=== PATIENT | female | born 1935 | race Caucasian/White ===

== ENCOUNTER → 2017-05-04 | Outpatient (CLI) | payer MEDICARE, OTHER ==
[2017-05-04 09:58] LABS: ABSOLUTE BASOPHILS # (AUTO) 0.1 10^3/uL (0.0-0.2); ABSOLUTE EOSINOPHILS # (AUTO) 0.2 10^3/uL (0.0-0.6); ABSOLUTE LYMPHOCYTES (AUTO) 3.2 10^3/uL (0.5-4.7); ABSOLUTE MONOCYTES (AUTO) 0.5 10^3/uL (0.1-1.4); ABSOLUTE NEUT (AUTO) 3.5 10^3/uL (1.7-8.2); EOSINOPHILS % (AUTO) 2.2 % (0-6); HEMOGLOBIN 12.2 g/dL (12.0-15.5); HGB HCT DIFFERENCE -0.4; LYMPHOCYTES % (AUTO) 43.1 % (13-45); MEAN CORPUSCULAR HEMOGLOBIN 30.2 pg (27.0-33.4); MEAN CORPUSCULAR HGB CONC 32.9 g/dL (32.0-36.0); MEAN CORPUSCULAR VOLUME 92 fl (80-97); MONOCYTES % (AUTO) 6.5 % (3-13); RED BLOOD COUNT 4.02 10^6/uL (3.72-5.28); RED CELL DISTRIBUTION WIDTH 13.8 % (11.5-14.0); SEGMENTED NEUTROPHILS % (AUTO) 47.2 % (42-78); WHITE BLOOD COUNT 7.3 10^3/uL (4.0-10.5)
[2017-05-04 10:22] LABS: ALANINE AMINOTRANSFERASE 24 U/L (9-52); ALBUMIN 3.9 g/dL (3.5-5.0); ALKALINE PHOSPHATASE 32 U/L (38-126); ANION GAP 11 (5-19); ASPARTATE AMINO TRANSFERASE 21 U/L (14-36); BILIRUBIN,DIRECT 0.3 mg/dL (0.0-0.4); BILIRUBIN,TOTAL 0.6 mg/dL (0.2-1.3); BLOOD UREA NITROGEN 18 mg/dL (7-20); CALCIUM 9.6 mg/dL (8.4-10.2); CARBON DIOXIDE 27 mmol/L (22-30); CHLORIDE 103 mmol/L (98-107); CHOLESTEROL 146.66 mg/dL (0-200); CREATININE RESULT 0.69 mg/dL (0.52-1.25); Direct HDL 46 mg/dL (>40); GLUCOSE 178 mg/dL (75-110); POTASSIUM 3.6 mmol/L (3.6-5.0); SODIUM 140.8 mmol/L (137-145); TOTAL PROTEIN 6.3 g/dL (6.3-8.2); TRIGLYCERIDES 117 mg/dL (<150)
[2017-05-04 10:35] LABS: DIRECT LDL 88 mg/dL (<100)
== END ==
LOC: OD 08:50
PROVIDERS: ATTEND Internal Medicine
DX: E11.9 Type 2 diabetes mellitus without complications (principal); I10 Essential (primary) hypertension; E78.5 Hyperlipidemia, unspecified
CPT/HCPCS: 36415; 80053; 80061; 82043; 83036; 84443; 85025

== ENCOUNTER 2018-04-06 20:03 | Inpatient (IN) | payer MEDICARE, OTHER ==
[2018-04-06] MEDS ORDERED: RINGERS SOLUTION,LACTATED 1,000 ML IV ONE ×2 (20:10→21:35)
[2018-04-06] MEDS ORDERED: CEFEPIME 2 GM/D5W RTU 2 GM/50 ML RTUPB IV ONE (20:11)
--- NOTE | 2018-04-06 20:32 | ER Document Report ---
ED General - General Stated Complaint: FEVER Time Seen by Provider: 04/06/18 20:10 Cannot obtain history due to: Altered mental status Notes: Patient is an 82-year-old female with a past medical history of hypertension who presents with confusion and fever. The patient is unable to provide any meaningful history at time of arrival stating she is uncertain of why she is here that she overall feels "fine". Per EMS report, family contacted their services due to concerns the patient was acting confused and disoriented. No family is present at time of initial assessment to corroborate history. TRAVEL OUTSIDE OF THE [place] IN LAST 30 DAYS: No - Related Data Allergies/Adverse Reactions: No Known Allergies Allergy (Verified 05/10/13 08:31) Past Medical History - General Information source: Patient, Emergency Med Personnel Cannot obtain history due to: Altered mental status - Social History Smoking Status: Never Smoker Frequency of alcohol use: None Drug Abuse: None Lives with: Family Family History: Reviewed & Not Pertinent - Past Medical History Cardiac Medical History: Reports: Hx Hypercholesterolemia, Hx Hypertension - lisinopril metoprolol hctz lipitor Denies: Hx Congestive Heart Failure, Hx Heart Attack, Hx Heart Murmur Pulmonary Medical History: Denies: Hx Asthma, Hx Bronchitis, Hx COPD, Hx Pneumonia, Hx Tuberculosis Neurological Medical History: Denies: Hx Cerebrovascular Accident, Hx Seizures GI Medical History: Denies: Hx Hepatitis, Hx Hiatal Hernia, Hx Ulcer Musculoskeltal Medical History: Infectious Medical History: Denies: Hx Hepatitis Past Surgical History: Reports: Hx Appendectomy, Hx Cholecystectomy, Hx Hysterectomy, Hx Mastectomy - TROY, NO NEED TO AVOID EITHER ARM. Denies: Hx Open Heart Surgery, Hx Pacemaker - Immunizations Hx Diphtheria, Pertussis, Tetanus Vaccination: Yes Review of Systems - Review of Systems Notes: Constitutional: Positive for fever. HENT: Negative for sore throat. Eyes: Negative for visual changes. Cardiovascular: Negative for chest pain. Respiratory: Negative for shortness of breath. Gastrointestinal: Negative for abdominal pain, vomiting or diarrhea. Genitourinary: Negative for dysuria. Musculoskeletal: Negative for back pain. Skin: Negative for rash. Neurological: Negative for headaches, weakness or numbness. 10 point ROS negative except as marked above and in HPI. Physical Exam - Vital signs Vitals: Temp Pulse Resp BP Pulse Ox 100.0 F 113 H 17 224/109 H 96 04/06/18 20:19 04/06/18 20:19 04/06/18 20:19 04/06/18 20:19 04/06/18 20:19 Interpretation: Hypertensive, Tachycardic, Febrile Notes: PHYSICAL EXAMINATION: GENERAL: Well-appearing, well-nourished and in no acute distress. HEAD: Atraumatic, normocephalic. EYES: Pupils equal round and reactive to light, extraocular movements intact, sclera anicteric, conjunctiva are normal. ENT: nares patent, oropharynx clear without exudates. Moderately dry mucous membranes. NECK: Normal range of motion, supple without lymphadenopathy LUNGS: Breath sounds clear to auscultation bilaterally and equal. No wheezes rales or rhonchi. HEART: Regular tachycardia without murmurs ABDOMEN: Soft, nontender, normoactive bowel sounds. No guarding, no rebound. No masses appreciated. EXTREMITIES: Normal range of motion, no pitting or edema. No cyanosis. NEUROLOGICAL: No focal neurological deficits. Moves all extremities spontaneously and on command. PSYCH: Alert, oriented to person only but does not know the year, current president, or why she is here in the emergency department. SKIN: Warm, Dry, normal turgor, no rashes or lesions noted. Course - Re-evaluation Re-evalutation: 04/06/18 20:28 Patient presents confused, oriented to person but not year, location or why she is here. She is overall nontoxic in appearance, smiling and appropriately interactive with me although on presentation her vitals are abnormal with tachycardia, fever and marked hypertension. The patient does have a long- standing history of severe hypertension and is uncertain whether or not she has taken any of her 3 normal antihypertensives. Patient denies any complaints to me, states she does not know why she is here and otherwise feels okay. However patient does meet Sirs criteria at time of arrival we will therefore initiate a septic workup and begin IV fluids as well as cefepime IV. Will reassess at regular intervals. 04/06/18 21:35 Patient continues to be nontoxic in appearance, vitals show mild ongoing tachycardia but otherwise unremarkable. Patient's lactate is elevated at 3.8. Awaiting urinalysis although chest x-ray is clear. CBC does show mild leukocytosis. A second liter of IV fluids has been ordered. 04/06/18 22:25 Patient continues to be confused but otherwise nontoxic in appearance. Labs have all returned and do not show any obvious source of infection. Broad- spectrum coverage with vancomycin and cefepime is ongoing. I discussed this case with Dr. Ayala who is excepted the patient for Sirs with fever of unknown origin. I have confirmed with the daughter at the bedside that the patient is not normally disoriented to this degree which is consistent with a diagnosis of delirium in the setting of a fever of unknown origin. Family also confirms that the patient has not taken her blood pressure medications today likely accounting for her hypertensive urgency. - Vital Signs Vital signs: Temp Pulse Resp BP Pulse Ox 98.7 F 79 19 175/74 H 94 04/07/18 01:33 04/07/18 02:57 04/07/18 02:00 04/07/18 02:57 04/07/18 02:57 - Laboratory Result Diagrams: 04/06/18 19:33 04/06/18 19:33 Laboratory results interpreted by me: 04/06/18 04/06/18 04/06/18 19:33 19:33 20:38 WBC 12.1 H Seg Neutrophils % 86.1 H Lymphocytes % 11.3 L Monocytes % 1.9 L Absolute Neutrophils 10.4 H VBG pH Glucose 214 H Lactic Acid 3.8 H Urine Protein Urine Glucose (UA) Urine Ascorbic Acid 04/06/18 04/06/18 20:38 21:23 WBC Seg Neutrophils % Lymphocytes % Monocytes % Absolute Neutrophils VBG pH 7.43 H Glucose Lactic Acid Urine Protein 100 H Urine Glucose (UA) >=500 H Urine Ascorbic Acid 20 H - Diagnostic Test Radiology reviewed: Image reviewed, Reports reviewed Radiology results interpreted by me: 04/06/18 22:26 Chest x-ray: No acute infiltrate or pneumothorax Discharge - Discharge Clinical Impression: Fever of unknown origin, SIRS (systemic inflammatory response syndrome), Hypertensive urgency Condition: Fair Disposition: ADMITTED INPATIENT Admitting Provider: Hospitalist Unit Admitted: [facility]
[2018-04-06 20:38] LABS: ABSOLUTE BASOPHILS # (AUTO) 0.1 10^3/uL (0.0-0.2); ABSOLUTE LYMPHOCYTES (AUTO) 1.4 10^3/uL (0.5-4.7); ABSOLUTE MONOCYTES (AUTO) 0.2 10^3/uL (0.1-1.4); ABSOLUTE NEUT (AUTO) 10.4 10^3/uL (1.7-8.2); BASOPHILS % (AUTO) 0.7 % (0-2); HEMOGLOBIN 14.1 g/dL (12.0-15.5); LYMPHOCYTES % (AUTO) 11.3 % (13-45); MEAN CORPUSCULAR HEMOGLOBIN 30.8 pg (27.0-33.4); MEAN CORPUSCULAR HGB CONC 33.5 g/dL (32.0-36.0); MEAN CORPUSCULAR VOLUME 92 fl (80-97); MONOCYTES % (AUTO) 1.9 % (3-13); PLATELET COUNT 249 10^3/uL (150-450); RED BLOOD COUNT 4.56 10^6/uL (3.72-5.28); RED CELL DISTRIBUTION WIDTH 13.7 % (11.5-14.0); SEGMENTED NEUTROPHILS % (AUTO) 86.1 % (42-78); TOTAL CELLS COUNTED % (AUTO) 100 %; WHITE BLOOD COUNT 12.1 10^3/uL (4.0-10.5)
--- NOTE | 2018-04-06 20:38 | RADIOLOGY REPORT (SQ) ---
EXAM DESCRIPTION: CHEST SINGLE VIEW COMPLETED DATE/TIME: 04/06/2018 8:24 pm REASON FOR STUDY: fever, cough COMPARISON: CT from 05/03/2010 EXAM PARAMETERS: NUMBER OF VIEWS: One view. TECHNIQUE: Single frontal radiographic view of the chest acquired. RADIATION DOSE: NA LIMITATIONS: None. FINDINGS: LUNGS AND PLEURA: No opacities, masses or pneumothorax. No pleural effusion. MEDIASTINUM AND HILAR STRUCTURES: No masses. Contour normal. HEART AND VASCULAR STRUCTURES: Heart normal in size. Normal vasculature. BONES: No acute findings. HARDWARE: Stable. OTHER: No other significant finding. IMPRESSION: NO ACUTE RADIOGRAPHIC FINDING IN THE CHEST. TECHNICAL DOCUMENTATION: JOB ID: [id number] [employer]- All Rights Reserved Reading location - IP/workstation name: [email or web address]
[2018-04-06 20:58] LABS: ALANINE AMINOTRANSFERASE 23 U/L (9-52); ALBUMIN 4.1 g/dL (3.5-5.0); ALKALINE PHOSPHATASE 46 U/L (38-126); ANION GAP 15 (5-19); ASPARTATE AMINO TRANSFERASE 20 U/L (14-36); BILIRUBIN,DIRECT 0.3 mg/dL (0.0-0.4); BILIRUBIN,TOTAL 0.6 mg/dL (0.2-1.3); BLOOD UREA NITROGEN 11 mg/dL (7-20); CALCIUM 9.1 mg/dL (8.4-10.2); CARBON DIOXIDE 26 mmol/L (22-30); CHLORIDE 100 mmol/L (98-107); GLUCOSE 214 mg/dL (75-110); POTASSIUM 4.3 mmol/L (3.6-5.0); SODIUM 140.5 mmol/L (137-145); TOTAL PROTEIN 6.3 g/dL (6.3-8.2)
[2018-04-06 21:00] LABS: VENOUS BLOOD BASE EXCESS 1.4 mmol/L; VENOUS BLOOD HCO3 25.7 mmol/L (20-32); VENOUS BLOOD PCO2 39.8 mmHg (35-63); VENOUS BLOOD PH 7.43 (7.30-7.42)
[2018-04-06] MEDS ORDERED: VANCOMYCIN HCL INJ 1000 MG VIAL IV ONE (21:36)
[2018-04-06] MEDS ORDERED: ACETAMINOPHEN 325 MG TABLET PO ONE (21:37)
[2018-04-06 21:51] LABS: APPEARANCE,URINE CLEAR; BILIRUBIN,URINE NEGATIVE (NEGATIVE); COLOR,URINE YELLOW; GLUCOSE, URINE >=500 mg/dL (NEGATIVE); KETONES,URINE NEGATIVE (NEGATIVE); LEUKOCYTE ESTERASE,URINE NEGATIVE (NEGATIVE); NITRITE,URINE NEGATIVE (NEGATIVE); PROTEIN,URINE 100 mg/dL (NEGATIVE); URINE SPECIFIC GRAVITY 1.014; UROBILINOGEN,URINE NEGATIVE mg/dL (<2.0)
[2018-04-06] MEDS ORDERED: IPRATROPIUM/ALBUTEROL 0.5-2.5 MG/3 ML AMPUL NEB PRN (22:15)
[2018-04-06] MEDS ORDERED: MAGNESIUM HYDROXIDE SUSP 30 ML UDCUP PO PRN (22:15)
[2018-04-06] MEDS ORDERED: METOPROLOL TARTRATE 100 MG TABLET PO ONE (22:30)
[2018-04-06] MEDS ORDERED: ASPIRIN 81 MG TABLET, ENT COATED PO ONE (23:00)
[2018-04-06] MEDS ORDERED: ASPIRIN 81 MG TABLET, ENT COATED PO SCH (23:00)
[2018-04-06 23:12] LABS: URINE AMPHETAMINES SCREEN NEGATIVE; URINE BARBITURATES SCREEN NEGATIVE; URINE BENZODIAZEPINES SCREEN NEGATIVE; URINE COCAINE SCREEN NEGATIVE; URINE MARIJUANA (THC) SCREEN NEGATIVE; URINE METHADONE SCREEN NEGATIVE; URINE PHENCYCLIDINE SCREEN NEGATIVE
[2018-04-07] MEDS: HYDRALAZINE HCL INJ/PF 20 MG/1 ML SDV IV PRN ×2 (01:37→12:37)
--- NOTE | 2018-04-07 04:04 | PDOC H&P ---
History of Present Illness Admission Date/PCP: 04/06/18 22:36 ANJUM CORTEZMALENAMARIA FERNANDA, Patient complains of: Altered mental status History of Present Illness: JOSEPH NICOLE is a 82 year old female with history of hypertension who presents with altered mental status and fever. Patient brought to the emergency room after noted by family member to be disoriented with fever of 100.2. In the emergency room she is found to have a blood pressure of 224/109 Patient is a poor historian however completely denies pain or complaints and states she feels well. Specifically denying photophobia, stiff neck or headache. She denies any missed medications or new medications nor exceptional stressors. Biochemical, biophysical and imaging workup is nonspecific. She started on empiric antibiotics and referred to the hospitalist for admission. Past Medical History Cardiac Medical History: Reports: Hyperlipidema, Hypertension - lisinopril metoprolol hctz lipitor Denies: Congestive Heart Failure, Myocardial Infarction, Heart Murmur Pulmonary Medical History: Denies: Asthma, Bronchitis, Chronic Obstructive Pulmonary Disease (COPD), Pneumonia, Tuberculosis Neurological Medical History: Denies: Seizures GI Medical History: Denies: Hepatitis, Hiatal Hernia Musculoskeltal Medical History: Hematology: Denies: Anemia, Hemophilia, Sickle Cell Disease Past Surgical History Past Surgical History: Reports: Appendectomy, Cholecystectomy, Hysterectomy, Mastectomy - TROY, NO NEED TO AVOID EITHER ARM Denies: Amputation, Pacemaker Social History Information Source: Patient, [facility] Records Lives with: Family Smoking Status: Never Smoker Frequency of Alcohol Use: None Hx Recreational Drug Use: No Drugs: None - Advance Directive Resuscitation Status: Full Code Family History Family History: Other - Unobtainable Parental Family History Reviewed: Yes - Unobtainable Children Family History Reviewed: Yes - Unobtainable Sibling(s) Family History Reviewed.: Yes - Unobtainable Medication/Allergy Home Medications: Anastrozole [Arimidex 1 mg Tablet] 1 mg PO DAILY 04/30/13 Antiox #11/Om3/Dha/Epa/Lut/Stephon [Ocuvite Adult 50+ Softgel] 1 cap PO DAILY Aspirin [Ecotrin 81 mg EC Tablet] 81 mg PO DAILY PRN 04/30/13 Atorvastatin Calcium [Lipitor 20 Mg Tablet] 20 mg PO QHS 04/30/13 Hydrochlorothiazide [Hydrodiuril 25 mg Tablet] 25 mg PO QAM 04/30/13 Ibuprofen [Motrin 400 Mg Tablet] 400 mg PO PRN PRN 04/30/13 Lisinopril [Prinivil 10 mg Tablet] 10 mg PO DAILY 04/30/13 Dallas-3 Fatty Acids [Fish Oil] 300 mg PO DAILY 04/30/13 Dallas-3 Fatty Acids [Dallas-3] 1,000 mg PO DAILY 04/30/13 Metoprolol Tartrate [Lopressor 100 Mg Tablet] 100 mg PO 06/14/13 Allergies/Adverse Reactions: No Known Allergies Allergy (Verified 05/10/13 08:31) Review of Systems ROS unobtainable: Due to mental status Constitutional: ABSENT: chills, fever(s), headache(s), weight gain, weight loss Eyes: ABSENT: visual disturbances Ears: ABSENT: hearing changes Cardiovascular: ABSENT: chest pain, dyspnea on exertion, edema, orthropnea, palpitations Respiratory: ABSENT: cough, hemoptysis Gastrointestinal: ABSENT: abdominal pain, constipation, diarrhea, hematemesis, hematochezia, nausea, vomiting Genitourinary: ABSENT: dysuria, hematuria Musculoskeletal: ABSENT: joint swelling Integumentary: ABSENT: rash, wounds Neurological: ABSENT: abnormal gait, abnormal speech, confusion, dizziness, focal weakness, syncope Psychiatric: ABSENT: anxiety, depression, homidical ideation, suicidal ideation Endocrine: ABSENT: cold intolerance, heat intolerance, polydipsia, polyuria Hematologic/Lymphatic: ABSENT: easy bleeding, easy bruising Physical Exam Vital Signs: Temp Pulse Resp BP Pulse Ox 98.7 F 79 19 175/74 H 94 04/07/18 01:33 04/07/18 02:57 04/07/18 02:00 04/07/18 02:57 04/07/18 02:57 Intake & Output 04/05/18 04/06/18 04/07/18 11:59 11:59 11:59 Weight 73.7 kg General appearance: PRESENT: no acute distress, cooperative, hard of hearing, obese, well-developed, well-nourished. ABSENT: disheveled Head exam: PRESENT: atraumatic, normocephalic Eye exam: PRESENT: conjunctiva pink, EOMI, PERRLA. ABSENT: scleral icterus Ear exam: PRESENT: normal external ear exam Mouth exam: PRESENT: moist, tongue midline Neck exam: ABSENT: carotid bruit, JVD, lymphadenopathy, thyromegaly Respiratory exam: PRESENT: clear to auscultation troy. ABSENT: rales, rhonchi, wheezes Cardiovascular exam: PRESENT: RRR. ABSENT: diastolic murmur, rubs, systolic murmur Pulses: PRESENT: normal dorsalis pedis pul Vascular exam: PRESENT: normal capillary refill GI/Abdominal exam: PRESENT: normal bowel sounds, soft. ABSENT: distended, guarding, mass, organolmegaly, rebound, tenderness Rectal exam: PRESENT: deferred Extremities exam: PRESENT: full ROM. ABSENT: calf tenderness, clubbing, pedal edema Neurological exam: PRESENT: alert, awake, oriented to person, oriented to place , oriented to time, oriented to situation, CN II-XII grossly intact. ABSENT: motor sensory deficit Psychiatric exam: PRESENT: appropriate affect, normal mood. ABSENT: homicidal ideation, suicidal ideation Skin exam: PRESENT: dry, intact, warm. ABSENT: cyanosis, rash Results Laboratory Results: 04/07/18 00:41 Lactic Acid 3.1 H 04/06/18 22:40 Troponin I 0.027 Impressions: Chest X-Ray 04/06/18 20:10 IMPRESSION: NO ACUTE RADIOGRAPHIC FINDING IN THE CHEST. Assessment & Plan - Diagnosis (1) Hypertensive urgency Is this a current diagnosis for this admission?: Yes Plan: Telemetry admission, NESS inhibitor and hydralazine ordered medication reconciliation pending (2) Encephalopathy Is this a current diagnosis for this admission?: Yes Plan: Possibly multifactorial secondary to #1 and unknown source of fever. Blood pressure reduction and supportive care follow-up a.m. labs (3) Fever of unknown origin Plan: We will withhold antibiotics pending identification of source. - Time Time Spent: 50 to 70 Minutes - Inpatient Certification Medical Necessity: Need Close Monitoring Due to Risk of Patient Decompensation
[2018-04-07 04:52] LABS: ABSOLUTE BASOPHILS # (AUTO) 0.1 10^3/uL (0.0-0.2); ABSOLUTE LYMPHOCYTES (AUTO) 3.2 10^3/uL (0.5-4.7); ABSOLUTE MONOCYTES (AUTO) 0.8 10^3/uL (0.1-1.4); ABSOLUTE NEUT (AUTO) 8.5 10^3/uL (1.7-8.2); EOSINOPHILS % (AUTO) 0.2 % (0-6); HEMOGLOBIN 12.6 g/dL (12.0-15.5); LYMPHOCYTES % (AUTO) 25.2 % (13-45); MEAN CORPUSCULAR HEMOGLOBIN 30.5 pg (27.0-33.4); MEAN CORPUSCULAR HGB CONC 33.1 g/dL (32.0-36.0); MEAN CORPUSCULAR VOLUME 92 fl (80-97); MONOCYTES % (AUTO) 6.2 % (3-13); PLATELET COUNT 214 10^3/uL (150-450); RED BLOOD COUNT 4.13 10^6/uL (3.72-5.28); RED CELL DISTRIBUTION WIDTH 13.7 % (11.5-14.0); SEGMENTED NEUTROPHILS % (AUTO) 67.4 % (42-78); TOTAL CELLS COUNTED % (AUTO) 100 %; WHITE BLOOD COUNT 12.5 10^3/uL (4.0-10.5)
[2018-04-07] MEDS ORDERED: HYDRALAZINE HCL INJ/PF 20 MG/1 ML SDV IV ONE (05:00)
[2018-04-07 05:18] LABS: ALANINE AMINOTRANSFERASE 21 U/L (9-52); ALBUMIN 3.3 g/dL (3.5-5.0); ALKALINE PHOSPHATASE 29 U/L (38-126); ANION GAP 11 (5-19); ASPARTATE AMINO TRANSFERASE 15 U/L (14-36); BILIRUBIN,DIRECT 0.1 mg/dL (0.0-0.4); BILIRUBIN,TOTAL 0.4 mg/dL (0.2-1.3); BLOOD UREA NITROGEN 9 mg/dL (7-20); CALCIUM 8.5 mg/dL (8.4-10.2); CARBON DIOXIDE 26 mmol/L (22-30); CHLORIDE 103 mmol/L (98-107); CREATINE KINASE 42 U/L (30-135); GLUCOSE 181 mg/dL (75-110); POTASSIUM 3.6 mmol/L (3.6-5.0); SODIUM 139.7 mmol/L (137-145); TOTAL PROTEIN 5.4 g/dL (6.3-8.2)
[2018-04-07 05:22] LABS: CREATINE KINASE MB 0.56 ng/mL (<4.55); TROPONIN I 0.025 ng/mL
[2018-04-07] MEDS: HEPARIN SOD (PORCINE) 5,000 UNIT/ML 1 ML SYRINGE SUBCUT SCH ×3 (05:32→22:21)
[2018-04-07] MEDS: HYDROCHLOROTHIAZIDE 25 MG TABLET PO SCH (08:48)
[2018-04-07] MEDS: METOPROLOL TARTRATE 100 MG TABLET PO SCH (08:48)
[2018-04-07] MEDS: ASPIRIN 81 MG TABLET, ENT COATED PO SCH (08:49)
[2018-04-07] MEDS: LISINOPRIL 10 MG TABLET PO SCH (08:51)
--- NOTE | 2018-04-07 10:20 | PDOC PROGRESS REPORT ---
Subjective Progress Note for:: 04/07/18 Subjective:: Patient is seen resting in bed. She is aware she is in the hospital. She is confused to time and date. She does not recall why she came to the hospital to begin with. She denies any chest pain, shortness of breath or dyspnea. She denies any nausea, vomiting, diarrhea or or abdominal pain. She denies dysuria. She denies any arthralgias or myalgias. Remaining review of systems are negative. Reason For Visit: HTN URGENCY AMS Physical Exam Vital Signs: Temp Pulse Resp BP Pulse Ox 98.1 F 85 16 171/74 H 96 04/07/18 07:45 04/07/18 07:45 04/07/18 07:45 04/07/18 07:45 04/07/18 07:45 Intake & Output 04/06/18 04/07/18 04/08/18 06:59 06:59 06:59 Intake Total 250 Output Total 200 Balance 50 Weight 73.7 kg General appearance: PRESENT: no acute distress, well-developed, well-nourished Head exam: PRESENT: atraumatic, normocephalic Eye exam: PRESENT: conjunctiva pink, EOMI, PERRLA. ABSENT: scleral icterus Ear exam: PRESENT: normal external ear exam Mouth exam: PRESENT: moist, tongue midline Neck exam: ABSENT: carotid bruit, JVD, lymphadenopathy, thyromegaly Respiratory exam: PRESENT: clear to auscultation willam. ABSENT: rales, rhonchi, wheezes Cardiovascular exam: PRESENT: RRR. ABSENT: diastolic murmur, rubs, systolic murmur Pulses: PRESENT: normal dorsalis pedis pul Vascular exam: PRESENT: normal capillary refill GI/Abdominal exam: PRESENT: normal bowel sounds, soft. ABSENT: distended, guarding, mass, organolmegaly, rebound, tenderness Rectal exam: PRESENT: deferred Extremities exam: PRESENT: full ROM. ABSENT: calf tenderness, clubbing, pedal edema Musculoskeletal exam: PRESENT: ambulatory, full ROM, normal inspection Neurological exam: PRESENT: alert, awake, oriented to person, oriented to place , CN II-XII grossly intact, normal gait. ABSENT: motor sensory deficit Psychiatric exam: PRESENT: appropriate affect Skin exam: PRESENT: dry, intact, warm. ABSENT: cyanosis, rash Results Laboratory Results: 04/07/18 04:11 04/07/18 04:11 04/07/18 04/07/18 04/07/18 00:41 04:11 04:11 WBC 12.5 H RBC 4.13 Hgb 12.6 Hct 38.0 MCV 92 MCH 30.5 MCHC 33.1 RDW 13.7 Plt Count 214 Seg Neutrophils % 67.4 Lymphocytes % 25.2 Monocytes % 6.2 Eosinophils % 0.2 Basophils % 1.0 Absolute Neutrophils 8.5 H Absolute Lymphocytes 3.2 Absolute Monocytes 0.8 Absolute Eosinophils 0.0 Absolute Basophils 0.1 Sodium 139.7 Potassium 3.6 Chloride 103 Carbon Dioxide 26 Anion Gap 11 BUN 9 Creatinine 0.53 Est GFR ( Amer) > 60 Est GFR (Non-Af Amer) > 60 Glucose 181 H Lactic Acid 3.1 H Calcium 8.5 Total Bilirubin 0.4 AST 15 ALT 21 Alkaline Phosphatase 29 L Total Protein 5.4 L Albumin 3.3 L 04/06/18 04/07/18 04/07/18 22:40 04:11 04:11 Creatine Kinase 42 CK-MB (CK-2) 0.56 Troponin I 0.027 0.025 Impressions: Chest X-Ray 04/06/18 20:10 IMPRESSION: NO ACUTE RADIOGRAPHIC FINDING IN THE CHEST. Assessment & Plan - Diagnosis (1) Encephalopathy Is this a current diagnosis for this admission?: Yes Plan: Mentation has improved but she is still somewhat confused regarding time and date. Her fever has resolved. she has no symptoms of infection at the present time. Blood cultures and urine cultures are pending. Will continue IV broad- spectrum antibiotics until they are resolved. She continues to have a mild leukocytosis. (2) Fever of unknown origin Is this a current diagnosis for this admission?: Yes Plan: As above in #1 (3) Hypertensive urgency Is this a current diagnosis for this admission?: Yes Plan: Blood pressures much improved we will add home lisinopril dose (4) SIRS (systemic inflammatory response syndrome) Is this a current diagnosis for this admission?: Yes Plan: Resolving - Time Time Spent with patient: 25-34 minutes Total Critical Time (Minutes): 20 Medications reviewed and adjusted accordingly: Yes Anticipated discharge: Home with Homehealth
[2018-04-07] MEDS ORDERED: ONDANSETRON HCL INJ/PF 4 MG/2 ML SDV ONE (13:11)
[2018-04-07] MEDS ORDERED: ONDANSETRON HCL INJ/PF 4 MG/2 ML SDV IV PRN (13:34)
[2018-04-07] MEDS ORDERED: ACETAMINOPHEN 325 MG TABLET PO PRN (14:23)
[2018-04-07] MEDS ORDERED: AMLODIPINE BESYLATE 5 MG TABLET PO ONE (15:30)
[2018-04-07] MEDS ORDERED: LABETALOL HCL INJ 20 MG/4 ML DISP.SYRIN IV PRN (16:14)
[2018-04-07] MEDS ORDERED: LABETALOL HCL INJ 200 MG/40 ML VIAL IV ONE (18:12)
[2018-04-07] MEDS: AMLODIPINE BESYLATE 5 MG TABLET PO SCH (22:21)
[2018-04-07] MEDS: ATORVASTATIN CALCIUM 20 MG TABLET PO SCH (22:21)
[2018-04-08 05:16] LABS: ABSOLUTE BASOPHILS # (AUTO) 0.1 10^3/uL (0.0-0.2); ABSOLUTE LYMPHOCYTES (AUTO) 2.8 10^3/uL (0.5-4.7); ABSOLUTE MONOCYTES (AUTO) 0.8 10^3/uL (0.1-1.4); ABSOLUTE NEUT (AUTO) 11.4 10^3/uL (1.7-8.2); BASOPHILS % (AUTO) 0.8 % (0-2); HEMATOCRIT 37.2 % (36.0-47.0); HEMOGLOBIN 12.5 g/dL (12.0-15.5); LYMPHOCYTES % (AUTO) 18.8 % (13-45); MEAN CORPUSCULAR HEMOGLOBIN 30.8 pg (27.0-33.4); MEAN CORPUSCULAR HGB CONC 33.6 g/dL (32.0-36.0); MEAN CORPUSCULAR VOLUME 92 fl (80-97); MONOCYTES % (AUTO) 5.4 % (3-13); PLATELET COUNT 213 10^3/uL (150-450); RED BLOOD COUNT 4.06 10^6/uL (3.72-5.28); RED CELL DISTRIBUTION WIDTH 13.4 % (11.5-14.0); TOTAL CELLS COUNTED % (AUTO) 100 %; WHITE BLOOD COUNT 15.2 10^3/uL (4.0-10.5)
[2018-04-08] MEDS: HEPARIN SOD (PORCINE) 5,000 UNIT/ML 1 ML SYRINGE SUBCUT SCH ×3 (05:51→23:01)
[2018-04-08 05:54] LABS: ANION GAP 9 (5-19); BLOOD UREA NITROGEN 16 mg/dL (7-20); CALCIUM 8.9 mg/dL (8.4-10.2); CARBON DIOXIDE 30 mmol/L (22-30); CHLORIDE 99 mmol/L (98-107); GLUCOSE 149 mg/dL (75-110); POTASSIUM 3.1 mmol/L (3.6-5.0)
[2018-04-08] MEDS ORDERED: POTASSIUM CHLORIDE 10 MEQ TABLET.SA PO ONE (09:00)
--- NOTE | 2018-04-08 09:09 | PDOC PROGRESS REPORT ---
Subjective Progress Note for:: 04/08/18 Subjective:: Patient is seen resting in bed. She is aware she is in the hospital. She is confused to time and date. She is asking to go home. She does not recall why she came to the hospital to begin with. She denies any chest pain, shortness of breath or dyspnea. She denies any nausea, vomiting, diarrhea or or abdominal pain this morning. She did have 3 episodes of vomiting yesterday and one spike in temperature to 100.2. She denies dysuria. Nursing reports she has been urinating frequently in small amounts. She denies any arthralgias or myalgias. Remaining review of systems are negative Reason For Visit: HTN URGENCY AMS Physical Exam Vital Signs: Temp Pulse Resp BP Pulse Ox 98.0 F 83 20 138/55 H 98 04/08/18 07:10 04/08/18 07:10 04/08/18 07:10 04/08/18 07:10 04/08/18 07:10 Intake & Output 04/07/18 04/08/18 04/09/18 06:59 06:59 06:59 Intake Total 250 509 Output Total 200 500 Balance 50 9 Weight 73.7 kg 73 kg General appearance: PRESENT: no acute distress, well-developed, well-nourished Head exam: PRESENT: atraumatic, normocephalic Eye exam: PRESENT: conjunctiva pink, EOMI, PERRLA. ABSENT: scleral icterus Ear exam: PRESENT: normal external ear exam Mouth exam: PRESENT: moist, tongue midline Neck exam: ABSENT: carotid bruit, JVD, lymphadenopathy, thyromegaly Respiratory exam: PRESENT: clear to auscultation willam, symmetrical, unlabored Cardiovascular exam: PRESENT: RRR. ABSENT: diastolic murmur, rubs, systolic murmur Pulses: PRESENT: normal carotid pulses, normal radial pulses Vascular exam: PRESENT: normal capillary refill GI/Abdominal exam: PRESENT: normal bowel sounds, soft. ABSENT: distended, guarding, mass, organolmegaly, rebound, tenderness Rectal exam: PRESENT: deferred Extremities exam: PRESENT: full ROM. ABSENT: calf tenderness, clubbing, pedal edema Musculoskeletal exam: PRESENT: ambulatory, full ROM, normal inspection Neurological exam: PRESENT: alert, altered, awake, oriented to person, CN II- XII grossly intact Psychiatric exam: PRESENT: appropriate affect, normal mood. ABSENT: homicidal ideation, suicidal ideation Skin exam: PRESENT: dry, intact, warm. ABSENT: cyanosis, rash Results Laboratory Results: 04/08/18 04:48 04/08/18 04:48 04/08/18 04/08/18 04:48 04:48 WBC 15.2 H RBC 4.06 Hgb 12.5 Hct 37.2 MCV 92 MCH 30.8 MCHC 33.6 RDW 13.4 Plt Count 213 Seg Neutrophils % 75.0 Lymphocytes % 18.8 Monocytes % 5.4 Eosinophils % 0.0 Basophils % 0.8 Absolute Neutrophils 11.4 H Absolute Lymphocytes 2.8 Absolute Monocytes 0.8 Absolute Eosinophils 0.0 Absolute Basophils 0.1 Sodium 138.0 Potassium 3.1 L Chloride 99 Carbon Dioxide 30 Anion Gap 9 BUN 16 Creatinine 0.70 Est GFR ( Amer) > 60 Est GFR (Non-Af Amer) > 60 Glucose 149 H Calcium 8.9 04/06/18 04/07/18 04/07/18 22:40 04:11 04:11 Creatine Kinase 42 CK-MB (CK-2) 0.56 Troponin I 0.027 0.025 Impressions: Chest X-Ray 04/06/18 20:10 IMPRESSION: NO ACUTE RADIOGRAPHIC FINDING IN THE CHEST. Assessment & Plan - Diagnosis (1) Encephalopathy Is this a current diagnosis for this admission?: Yes Plan: According to and [id number] she has had increasing confusion over the last several months which acutely worsened on Monday accompanied by low grade fever. She did have 3 episodes of vomiting yesterday. She has had no diarrhea. Blood cultures x 2 are negative at 24 hrs. Urine culture is negative. Chest xray is clear. Will check CT of the head Continue antibiotics for another 24 hrs (2) Fever of unknown origin Is this a current diagnosis for this admission?: Yes Plan: As above in #1 (3) Hypertensive urgency Is this a current diagnosis for this admission?: Yes Plan: Blood pressures much improved we will add home lisinopril dose (4) SIRS (systemic inflammatory response syndrome) Is this a current diagnosis for this admission?: Yes Plan: Resolving - Time Time Spent with patient: 25-34 minutes Total Critical Time (Minutes): 20 Medications reviewed and adjusted accordingly: Yes
[2018-04-08] MEDS: ASPIRIN 81 MG TABLET, ENT COATED PO SCH (10:02)
[2018-04-08] MEDS: AMLODIPINE BESYLATE 5 MG TABLET PO SCH ×2 (10:02→23:02)
[2018-04-08] MEDS: TAMOXIFEN CITRATE 10 MG TABLET PO SCH (10:02)
[2018-04-08] MEDS: METOPROLOL TARTRATE 100 MG TABLET PO SCH (10:02)
[2018-04-08] MEDS: LISINOPRIL 10 MG TABLET PO SCH (10:03)
[2018-04-08] MEDS: HYDROCHLOROTHIAZIDE 25 MG TABLET PO SCH (10:03)
--- NOTE | 2018-04-08 12:43 | RADIOLOGY REPORT (SQ) ---
EXAM DESCRIPTION: CT HEAD WITHOUT COMPLETED DATE/TIME: 04/08/2018 12:27 pm REASON FOR STUDY: Confusion,. TRANSIENT ALTERATION OF AWARENESS. COMPARISON: 05/26/2010. TECHNIQUE: Axial images acquired through the brain without intravenous contrast. Images reviewed wi th bone, brain and subdural windows. Images stored on PACS. All CT scanners at this facility use dose modulation, iterative reconstruction, and/or weight based d osing when appropriate to reduce radiation dose to as low as reasonably achievable (ALARA). [facility]: Dose Right [facility]: CareDose [facility]: Dose Right [facility]: Teradose 4D [facility]: Smart [place] Power RADIATION DOSE: CT Rad equipment meets quality standard of care and radiation dose reduction techniq ues were employed. CTDIvol: 53.2 mGy. DLP: 964 mGy-cm. mGy. LIMITATIONS: None. FINDINGS: VENTRICLES: Normal size and contour. CEREBRUM: No significant change in left periatrial ependymal/subependymal calcification with adjacent cortical atrophy left parietal region. There is minimal chronic white matter change in the subcorti lalo and periventricular white matter noted. No intracranial hemorrhage. No extra-axial collection. CEREBELLUM: No masses. No hemorrhage. No alteration of density. No evidence for acute infarction. EXTRAAXIAL SPACES: No fluid collections. No masses. ORBITS AND GLOBE: No intra- or extraconal masses. Normal contour of globe without masses. CALVARIUM: No fracture. PARANASAL SINUSES: No fluid or mucosal thickening. SOFT TISSUES: No mass or hematoma. OTHER: No other significant finding. IMPRESSION: NO SIGNIFICANT INTERVAL CHANGE. EVIDENCE OF ACUTE STROKE: NO. COMMENT: Quality ID # [id number]: Final reports with documentation of one or more dose reduction techniques (e.g., Automated exposure control, adjustment of the mA and/or kV according to patient size, use of iterative reconstruction technique) TECHNICAL DOCUMENTATION: JOB ID: [id number] [employer]- All Rights Reserved Reading location - IP/workstation name: [email or web address]
[2018-04-08] MEDS ORDERED: CEFTRIAXONE 1 GM/D5W RTU 1 GM/50 ML RTUPB IV ONE ×2 (20:00→20:38)
[2018-04-08] MEDS: ATORVASTATIN CALCIUM 20 MG TABLET PO SCH (23:02)
[2018-04-09] MEDS: HEPARIN SOD (PORCINE) 5,000 UNIT/ML 1 ML SYRINGE SUBCUT SCH ×3 (06:49→21:37)
--- NOTE | 2018-04-09 08:36 | PDOC PROGRESS REPORT ---
Subjective Progress Note for:: 04/09/18 Subjective:: The patient appears to be much better according to the family. She still appears to be confused. Her white count is still slightly elevated and she did have some fever. Upon further questioning the patient has been last week in the [facility]. Reason For Visit: HTN URGENCY AMS Physical Exam Vital Signs: Temp Pulse Resp BP Pulse Ox 98.1 F 86 18 136/75 H 98 04/09/18 03:43 04/09/18 06:00 04/09/18 06:00 04/09/18 06:00 04/09/18 06:00 Intake & Output 04/08/18 04/09/18 04/10/18 06:59 06:59 06:59 Intake Total 509 1005 Output Total 500 0 Balance 9 1005 Weight 73 kg 71.7 kg General appearance: PRESENT: mild distress Head exam: PRESENT: atraumatic Eye exam: PRESENT: conjunctiva pink Neck exam: ABSENT: carotid bruit, JVD Respiratory exam: PRESENT: clear to auscultation willam Cardiovascular exam: PRESENT: RRR, +S1, +S2 Pulses: PRESENT: +1 pedal pulses bilateral GI/Abdominal exam: PRESENT: normal bowel sounds, soft Extremities exam: PRESENT: full ROM Musculoskeletal exam: PRESENT: full ROM Neurological exam: PRESENT: alert, awake. ABSENT: oriented to person, oriented to place, oriented to time Skin exam: ABSENT: rash Results Laboratory Results: 04/08/18 04:48 04/08/18 04:48 04/06/18 04/07/18 04/07/18 22:40 04:11 04:11 Creatine Kinase 42 CK-MB (CK-2) 0.56 Troponin I 0.027 0.025 Impressions: Chest X-Ray 04/06/18 20:10 IMPRESSION: NO ACUTE RADIOGRAPHIC FINDING IN THE CHEST. Head CT 04/08/18 00:00 IMPRESSION: NO SIGNIFICANT INTERVAL CHANGE. EVIDENCE OF ACUTE STROKE: NO. Assessment & Plan - Diagnosis (1) Encephalopathy Is this a current diagnosis for this admission?: Yes Plan: We need to consider the [place] spotted fever and will add doxycycline. 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
[2018-04-09] MEDS ORDERED: CEFTRIAXONE SODIUM 1,000 MG in DEXTROSE 5%-WATER 50 ML IV SCH (10:00)
[2018-04-09] MEDS ORDERED: CEFTRIAXONE 1 GM/D5W RTU 1 GM/50 ML RTUPB IV SCH (10:00)
[2018-04-09] MEDS: DOXYCYCLINE HYCLATE 100 MG in DEXTROSE 5%-WATER 250 ML IV SCH ×2 (10:13→21:38)
[2018-04-09] MEDS: LISINOPRIL 10 MG TABLET PO SCH (10:14)
[2018-04-09] MEDS: AMLODIPINE BESYLATE 5 MG TABLET PO SCH ×2 (10:14→21:35)
[2018-04-09] MEDS: ASPIRIN 81 MG TABLET, ENT COATED PO SCH (10:14)
[2018-04-09] MEDS: HYDROCHLOROTHIAZIDE 25 MG TABLET PO SCH (10:14)
[2018-04-09] MEDS: METOPROLOL TARTRATE 100 MG TABLET PO SCH (10:14)
[2018-04-09] MEDS: TAMOXIFEN CITRATE 10 MG TABLET PO SCH (10:15)
[2018-04-09] MEDS: CEFTRIAXONE SODIUM 1,000 MG in DEXTROSE 5%-WATER 50 ML IV SCH (18:25)
[2018-04-09] MEDS: ATORVASTATIN CALCIUM 20 MG TABLET PO SCH (21:35)
[2018-04-10 05:14] LABS: ABSOLUTE BASOPHILS # (AUTO) 0.1 10^3/uL (0.0-0.2); ABSOLUTE EOSINOPHILS # (AUTO) 0.1 10^3/uL (0.0-0.6); ABSOLUTE LYMPHOCYTES (AUTO) 2.8 10^3/uL (0.5-4.7); ABSOLUTE MONOCYTES (AUTO) 0.5 10^3/uL (0.1-1.4); ABSOLUTE NEUT (AUTO) 3.6 10^3/uL (1.7-8.2); BASOPHILS % (AUTO) 1.3 % (0-2); HEMATOCRIT 37.9 % (36.0-47.0); HEMOGLOBIN 12.8 g/dL (12.0-15.5); LYMPHOCYTES % (AUTO) 39.7 % (13-45); MEAN CORPUSCULAR HEMOGLOBIN 30.4 pg (27.0-33.4); MEAN CORPUSCULAR HGB CONC 33.8 g/dL (32.0-36.0); MEAN CORPUSCULAR VOLUME 90 fl (80-97); MONOCYTES % (AUTO) 6.6 % (3-13); PLATELET COUNT 198 10^3/uL (150-450); RED BLOOD COUNT 4.21 10^6/uL (3.72-5.28); RED CELL DISTRIBUTION WIDTH 13.2 % (11.5-14.0); SEGMENTED NEUTROPHILS % (AUTO) 51.4 % (42-78); TOTAL CELLS COUNTED % (AUTO) 100 %; WHITE BLOOD COUNT 7.1 10^3/uL (4.0-10.5)
[2018-04-10] MEDS: HEPARIN SOD (PORCINE) 5,000 UNIT/ML 1 ML SYRINGE SUBCUT SCH ×3 (05:26→21:23)
[2018-04-10 05:41] LABS: ALANINE AMINOTRANSFERASE 22 U/L (9-52); ALBUMIN 3.1 g/dL (3.5-5.0); ALKALINE PHOSPHATASE 31 U/L (38-126); ANION GAP 8 (5-19); ASPARTATE AMINO TRANSFERASE 15 U/L (14-36); BILIRUBIN,DIRECT 0.2 mg/dL (0.0-0.4); BILIRUBIN,TOTAL 0.5 mg/dL (0.2-1.3); BLOOD UREA NITROGEN 15 mg/dL (7-20); CARBON DIOXIDE 33 mmol/L (22-30); CHLORIDE 100 mmol/L (98-107); GLUCOSE 119 mg/dL (75-110); SODIUM 140.5 mmol/L (137-145); TOTAL PROTEIN 5.4 g/dL (6.3-8.2)
[2018-04-10] MEDS: POTASSIUM CHLORIDE 20 MEQ/50 ML RTU IV SCH ×2 (06:50→12:49)
[2018-04-10] MEDS ORDERED: POTASSIUM CHLORIDE 10 MEQ TABLET.SA PO ONE (07:00)
[2018-04-10] MEDS: METOPROLOL TARTRATE 100 MG TABLET PO SCH (09:07)
[2018-04-10] MEDS: LISINOPRIL 10 MG TABLET PO SCH (09:07)
[2018-04-10] MEDS: HYDROCHLOROTHIAZIDE 25 MG TABLET PO SCH (09:07)
[2018-04-10] MEDS: ASPIRIN 81 MG TABLET, ENT COATED PO SCH (09:08)
[2018-04-10] MEDS: DOXYCYCLINE HYCLATE 100 MG in DEXTROSE 5%-WATER 250 ML IV SCH ×2 (09:08→21:24)
[2018-04-10] MEDS: AMLODIPINE BESYLATE 5 MG TABLET PO SCH ×2 (09:08→21:23)
[2018-04-10] MEDS: TAMOXIFEN CITRATE 10 MG TABLET PO SCH (09:10)
--- NOTE | 2018-04-10 11:46 | PDOC PROGRESS REPORT ---
Subjective Progress Note for:: 04/10/18 Subjective:: The patient seemed to be doing much better this morning. According to the her mentation has improved. Reason For Visit: HTN URGENCY AMS Physical Exam Vital Signs: Temp Pulse Resp BP Pulse Ox 98.3 F 65 16 167/64 H 92 04/10/18 10:44 04/10/18 10:44 04/10/18 10:44 04/10/18 10:44 04/10/18 10:44 Intake & Output 04/09/18 04/10/18 04/11/18 06:59 06:59 06:59 Intake Total 1005 1378 175 Output Total 0 275 Balance 1005 1103 175 Weight 71.7 kg 72.3 kg General appearance: PRESENT: mild distress Head exam: PRESENT: atraumatic Eye exam: PRESENT: conjunctiva pink Neck exam: ABSENT: carotid bruit, JVD Respiratory exam: PRESENT: clear to auscultation willam Cardiovascular exam: PRESENT: RRR, +S1, +S2 Pulses: PRESENT: +1 pedal pulses bilateral GI/Abdominal exam: PRESENT: normal bowel sounds, soft Extremities exam: PRESENT: full ROM Musculoskeletal exam: PRESENT: full ROM Neurological exam: PRESENT: alert, awake, oriented to place. ABSENT: oriented to person, oriented to time Results Laboratory Results: 04/10/18 05:01 04/10/18 05:01 04/10/18 04/10/18 04/10/18 05:01 05:01 05:01 WBC 7.1 RBC 4.21 Hgb 12.8 Hct 37.9 MCV 90 MCH 30.4 MCHC 33.8 RDW 13.2 Plt Count 198 Seg Neutrophils % 51.4 Lymphocytes % 39.7 Monocytes % 6.6 Eosinophils % 1.0 Basophils % 1.3 Absolute Neutrophils 3.6 Absolute Lymphocytes 2.8 Absolute Monocytes 0.5 Absolute Eosinophils 0.1 Absolute Basophils 0.1 Sodium 140.5 Potassium 3.0 L* Chloride 100 Carbon Dioxide 33 H Anion Gap 8 BUN 15 Creatinine 0.57 Est GFR ( Amer) > 60 Est GFR (Non-Af Amer) > 60 Glucose 119 H Calcium 9.0 Magnesium 1.8 Total Bilirubin 0.5 AST 15 ALT 22 Alkaline Phosphatase 31 L Total Protein 5.4 L Albumin 3.1 L TSH 3.46 04/06/18 04/07/18 04/07/18 22:40 04:11 04:11 Creatine Kinase 42 CK-MB (CK-2) 0.56 Troponin I 0.027 0.025 Impressions: Chest X-Ray 04/06/18 20:10 IMPRESSION: NO ACUTE RADIOGRAPHIC FINDING IN THE CHEST. Head CT 04/08/18 00:00 IMPRESSION: NO SIGNIFICANT INTERVAL CHANGE. EVIDENCE OF ACUTE STROKE: NO. Assessment & Plan - Diagnosis (1) Encephalopathy Is this a current diagnosis for this admission?: Yes Plan: Slight improvement continue current treatment (2) Fever of unknown origin Is this a current diagnosis for this admission?: Yes Plan: No fever since on 2 antibiotics (3) Hypertensive urgency Is this a current diagnosis for this admission?: Yes Plan: Much better controlled with medication (4) SIRS (systemic inflammatory response syndrome) Is this a current diagnosis for this admission?: Yes (5) Diabetes mellitus Qualifiers: Diabetes mellitus type: type 2 Diabetes mellitus usp insulin use: without usp use Is this a current diagnosis for this admission?: Yes Plan: Controlled with medications and diet
[2018-04-10] MEDS: CEFTRIAXONE SODIUM 1,000 MG in DEXTROSE 5%-WATER 50 ML IV SCH (18:03)
[2018-04-10] MEDS: HYDRALAZINE HCL INJ/PF 20 MG/1 ML SDV IV PRN (18:38)
[2018-04-10 18:57] LABS: BLOOD UREA NITROGEN 15 mg/dL (7-20); CALCIUM 9.4 mg/dL (8.4-10.2); CARBON DIOXIDE 31 mmol/L (22-30); GLUCOSE 109 mg/dL (75-110); POTASSIUM 3.7 mmol/L (3.6-5.0)
[2018-04-10 18:59] LABS: ANION GAP 9 (5-19); CHLORIDE 100 mmol/L (98-107)
[2018-04-10] MEDS: ATORVASTATIN CALCIUM 20 MG TABLET PO SCH (21:23)
[2018-04-10] MEDS: POTASSIUM CHLORIDE 10 MEQ TABLET.SA PO SCH (21:23)
[2018-04-11] MEDS: HEPARIN SOD (PORCINE) 5,000 UNIT/ML 1 ML SYRINGE SUBCUT SCH ×3 (05:20→21:41)
[2018-04-11 06:29] LABS: ABSOLUTE BASOPHILS # (AUTO) 0.1 10^3/uL (0.0-0.2); ABSOLUTE LYMPHOCYTES (AUTO) 2.6 10^3/uL (0.5-4.7); ABSOLUTE MONOCYTES (AUTO) 0.6 10^3/uL (0.1-1.4); ABSOLUTE NEUT (AUTO) 5.9 10^3/uL (1.7-8.2); BASOPHILS % (AUTO) 1.2 % (0-2); EOSINOPHILS % (AUTO) 0.3 % (0-6); HEMATOCRIT 38.3 % (36.0-47.0); LYMPHOCYTES % (AUTO) 28.2 % (13-45); MEAN CORPUSCULAR HEMOGLOBIN 30.9 pg (27.0-33.4); MEAN CORPUSCULAR HGB CONC 33.9 g/dL (32.0-36.0); MEAN CORPUSCULAR VOLUME 91 fl (80-97); MONOCYTES % (AUTO) 6.8 % (3-13); PLATELET COUNT 220 10^3/uL (150-450); RED CELL DISTRIBUTION WIDTH 13.5 % (11.5-14.0); SEGMENTED NEUTROPHILS % (AUTO) 63.5 % (42-78); TOTAL CELLS COUNTED % (AUTO) 100 %; WHITE BLOOD COUNT 9.3 10^3/uL (4.0-10.5)
[2018-04-11 06:49] LABS: ANION GAP 9 (5-19); BLOOD UREA NITROGEN 13 mg/dL (7-20); CALCIUM 9.1 mg/dL (8.4-10.2); CARBON DIOXIDE 29 mmol/L (22-30); CHLORIDE 102 mmol/L (98-107); GLUCOSE 126 mg/dL (75-110); POTASSIUM 3.4 mmol/L (3.6-5.0); SODIUM 140.1 mmol/L (137-145)
--- NOTE | 2018-04-11 08:33 | PDOC PROGRESS REPORT ---
Subjective Progress Note for:: 04/11/18 Subjective:: The patient appears to be doing slightly better. Her mental status is improving. She is still having trouble with her blood pressure and we have adjusted the medications. Reason For Visit: HTN URGENCY AMS Physical Exam Vital Signs: Temp Pulse Resp BP Pulse Ox 98.9 F 88 16 184/69 H 98 04/11/18 07:29 04/11/18 07:29 04/11/18 07:29 04/11/18 07:29 04/11/18 07:29 Intake & Output 04/10/18 04/11/18 04/12/18 06:59 06:59 06:59 Intake Total 1378 1925 Output Total 275 Balance 1103 1925 Weight 72.3 kg 73.2 kg General appearance: PRESENT: mild distress Head exam: PRESENT: atraumatic Eye exam: PRESENT: conjunctiva pink Neck exam: ABSENT: carotid bruit, JVD Respiratory exam: PRESENT: clear to auscultation willam Cardiovascular exam: PRESENT: RRR, +S1, +S2 GI/Abdominal exam: PRESENT: normal bowel sounds, soft Extremities exam: PRESENT: full ROM Musculoskeletal exam: PRESENT: ambulatory Neurological exam: PRESENT: alert, awake. ABSENT: oriented to person, oriented to place, oriented to time Results Laboratory Results: 04/11/18 05:17 04/11/18 05:17 04/10/18 04/11/18 04/11/18 18:15 05:17 05:17 WBC 9.3 RBC 4.20 Hgb 13.0 Hct 38.3 MCV 91 MCH 30.9 MCHC 33.9 RDW 13.5 Plt Count 220 Seg Neutrophils % 63.5 Lymphocytes % 28.2 Monocytes % 6.8 Eosinophils % 0.3 Basophils % 1.2 Absolute Neutrophils 5.9 Absolute Lymphocytes 2.6 Absolute Monocytes 0.6 Absolute Eosinophils 0.0 Absolute Basophils 0.1 Sodium 140.0 140.1 Potassium 3.7 3.4 L Chloride 100 102 Carbon Dioxide 31 H 29 Anion Gap 9 9 BUN 15 13 Creatinine 0.73 0.54 Est GFR ( Amer) > 60 > 60 Est GFR (Non-Af Amer) > 60 > 60 Glucose 109 126 H Calcium 9.4 9.1 Magnesium 1.8 04/06/18 04/07/18 04/07/18 22:40 04:11 04:11 Creatine Kinase 42 CK-MB (CK-2) 0.56 Troponin I 0.027 0.025 Impressions: Chest X-Ray 04/06/18 20:10 IMPRESSION: NO ACUTE RADIOGRAPHIC FINDING IN THE CHEST. Head CT 04/08/18 00:00 IMPRESSION: NO SIGNIFICANT INTERVAL CHANGE. EVIDENCE OF ACUTE STROKE: NO. Assessment & Plan - Diagnosis (1) Encephalopathy Is this a current diagnosis for this admission?: Yes Plan: Slight improvement continue current treatment (2) Fever of unknown origin Is this a current diagnosis for this admission?: Yes Plan: Resolved continue current medications (3) Hypertensive urgency Is this a current diagnosis for this admission?: Yes Plan: Improved we will adjust the p.o. medications (4) SIRS (systemic inflammatory response syndrome) Is this a current diagnosis for this admission?: Yes (5) Diabetes mellitus Qualifiers: Diabetes mellitus type: type 2 Diabetes mellitus chcf insulin use: without chcf use Is this a current diagnosis for this admission?: Yes Plan: Controlled with medications and diet
[2018-04-11] MEDS: HYDROCHLOROTHIAZIDE 25 MG TABLET PO SCH (08:39)
[2018-04-11] MEDS: HYDRALAZINE HCL INJ/PF 20 MG/1 ML SDV IV PRN (08:40)
[2018-04-11] MEDS: TAMOXIFEN CITRATE 10 MG TABLET PO SCH (09:43)
[2018-04-11] MEDS: ASPIRIN 81 MG TABLET, ENT COATED PO SCH (09:44)
[2018-04-11] MEDS: POTASSIUM CHLORIDE 10 MEQ TABLET.SA PO SCH ×2 (09:44→21:39)
[2018-04-11] MEDS: METOPROLOL TARTRATE 100 MG TABLET PO SCH (09:44)
[2018-04-11] MEDS: AMLODIPINE BESYLATE 5 MG TABLET PO SCH ×2 (09:44→21:41)
[2018-04-11] MEDS ORDERED: MAGNESIUM CITRATE 296 ML BOTTLE PO ONE (10:30)
[2018-04-11] MEDS ORDERED: DOXYCYCLINE HYCLATE 100 MG TABLET PO ONE (10:30)
[2018-04-11] MEDS: LISINOPRIL 10 MG TABLET PO SCH (10:56)
[2018-04-11] MEDS: HYDRALAZINE HCL 50 MG TABLET PO SCH ×2 (10:56→21:40)
[2018-04-11] MEDS: CEFTRIAXONE SODIUM 1,000 MG in DEXTROSE 5%-WATER 50 ML IV SCH (17:27)
[2018-04-11] MEDS: DOXYCYCLINE HYCLATE 100 MG TABLET PO SCH (21:41)
[2018-04-11] MEDS: ATORVASTATIN CALCIUM 20 MG TABLET PO SCH (21:41)
[2018-04-12] MEDS: HYDRALAZINE HCL INJ/PF 20 MG/1 ML SDV IV PRN (06:30)
[2018-04-12] MEDS: HEPARIN SOD (PORCINE) 5,000 UNIT/ML 1 ML SYRINGE SUBCUT SCH ×3 (06:30→22:02)
[2018-04-12 07:13] LABS: ROCKY MTN SPOTTED FEV IGG EIA Negative (Negative)
--- NOTE | 2018-04-12 08:16 | PDOC PROGRESS REPORT ---
Subjective Progress Note for:: 04/12/18 Subjective:: The patient states to feel better. She is still confused but seems to be slightly more appropriate. I have reviewed the discharge planning evaluation. We will make arrangements for home health Reason For Visit: HTN URGENCY AMS Physical Exam Vital Signs: Temp Pulse Resp BP Pulse Ox 98.0 F 102 H 18 143/66 H 94 04/12/18 07:27 04/12/18 07:27 04/12/18 07:27 04/12/18 07:27 04/12/18 07:27 Intake & Output 04/11/18 04/12/18 04/13/18 06:59 06:59 06:59 Intake Total 1925 1275 Balance 1925 1275 Weight 73.2 kg 70.9 kg General appearance: PRESENT: mild distress Head exam: PRESENT: atraumatic Eye exam: PRESENT: conjunctiva pink Neck exam: ABSENT: carotid bruit, JVD Respiratory exam: PRESENT: clear to auscultation willam Cardiovascular exam: PRESENT: RRR, +S1, +S2 GI/Abdominal exam: PRESENT: soft Extremities exam: PRESENT: full ROM Musculoskeletal exam: PRESENT: ambulatory Neurological exam: PRESENT: alert, awake. ABSENT: oriented to person, oriented to time Results Laboratory Results: 04/11/18 05:17 04/11/18 05:17 04/06/18 22:40 Blood Blood Culture - Final NO GROWTH IN 5 DAYS 04/06/18 04/07/18 04/07/18 22:40 04:11 04:11 Creatine Kinase 42 CK-MB (CK-2) 0.56 Troponin I 0.027 0.025 Impressions: Chest X-Ray 04/06/18 20:10 IMPRESSION: NO ACUTE RADIOGRAPHIC FINDING IN THE CHEST. Head CT 04/08/18 00:00 IMPRESSION: NO SIGNIFICANT INTERVAL CHANGE. EVIDENCE OF ACUTE STROKE: NO. Assessment & Plan - Diagnosis (1) Encephalopathy Is this a current diagnosis for this admission?: Yes Plan: Her encephalopathy acutely has resolved. The patient continues to be demented to a certain degree. (2) Fever of unknown origin Is this a current diagnosis for this admission?: Yes Plan: Resolved we will continue with doxycycline and stop Rocephin (3) Hypertensive urgency Is this a current diagnosis for this admission?: Yes Plan: Much better controlled with medications. (4) SIRS (systemic inflammatory response syndrome) Is this a current diagnosis for this admission?: Yes (5) Diabetes mellitus Qualifiers: Diabetes mellitus type: type 2 Diabetes mellitus senior living insulin use: without senior living use Is this a current diagnosis for this admission?: Yes Plan: Controlled with medications and diet
[2018-04-12] MEDS: POTASSIUM CHLORIDE 10 MEQ TABLET.SA PO SCH ×2 (10:36→22:01)
[2018-04-12] MEDS: AMLODIPINE BESYLATE 5 MG TABLET PO SCH ×2 (10:37→22:01)
[2018-04-12] MEDS: HYDRALAZINE HCL 50 MG TABLET PO SCH ×2 (10:38→22:02)
[2018-04-12] MEDS: METOPROLOL TARTRATE 100 MG TABLET PO SCH (10:38)
[2018-04-12] MEDS: TAMOXIFEN CITRATE 10 MG TABLET PO SCH (10:38)
[2018-04-12] MEDS: HYDROCHLOROTHIAZIDE 25 MG TABLET PO SCH (10:38)
[2018-04-12] MEDS: DOXYCYCLINE HYCLATE 100 MG TABLET PO SCH ×2 (10:39→22:02)
[2018-04-12] MEDS: ASPIRIN 81 MG TABLET, ENT COATED PO SCH (10:39)
[2018-04-12] MEDS: LISINOPRIL 10 MG TABLET PO SCH (10:39)
[2018-04-12] MEDS: ATORVASTATIN CALCIUM 20 MG TABLET PO SCH (22:01)
[2018-04-13] MEDS: HEPARIN SOD (PORCINE) 5,000 UNIT/ML 1 ML SYRINGE SUBCUT SCH (05:45)
[2018-04-13 08:48] LABS: LYME DISEASE IGM AB <0.80 index (0.00-0.79)
--- NOTE | 2018-04-13 08:53 | PDOC TRANSFER SUMMARY ---
General - Admit/Disc Date/PCP Admission Date/Primary Care Provider: 04/06/18 22:36 ANJUM JUAREZ, Discharge Date: 04/13/18 - Discharge Diagnosis (1) Encephalopathy Is this a current diagnosis for this admission?: Yes Summary: Improved. Will continue with current antibiotics. We have considered the possibility of [place] spotted fever as a cause. Dementia needs to be ruled out. The patient does have some component of dementia (2) Fever of unknown origin Is this a current diagnosis for this admission?: Yes (3) Hypertensive urgency Is this a current diagnosis for this admission?: Yes Summary: Continue current medication (4) SIRS (systemic inflammatory response syndrome) Is this a current diagnosis for this admission?: Yes (5) Diabetes mellitus Is this a current diagnosis for this admission?: Yes Summary: Continue current medications (6) Dementia Is this a current diagnosis for this admission?: Yes Summary: The patient does have a short-term memory problem most probably related to her age-related dementia. The recent fever of unknown origin and the possibility of [place] spotted fever has been undertaken. The patient is currently on antibiotics and should be improving - Additional Information Resuscitation Status: Full Code Discharge Diet: As Tolerated Discharge Activity: Activity As Tolerated Prescriptions: Doxycycline Hyclate [Vibramycin 100 mg Tablet] 100 mg PO Q12 #30 tablet Hydralazine HCl [Apresoline 50 mg Tablet] 50 mg PO Q12 #60 tablet Lisinopril [Prinivil 10 mg Tablet] 20 mg PO DAILY #30 tablet Potassium Chloride [Klor-Con 10 Meq Tablet.sa] 10 meq PO Q12 #60 tablet. Home Medications: Atorvastatin Calcium [Lipitor 20 mg Tablet] 20 mg PO QHS 04/30/13 Hydrochlorothiazide [Hydrodiuril 25 mg Tablet] 25 mg PO QAM 04/30/13 Metoprolol Tartrate [Lopressor 100 mg Tablet] 100 mg PO BID 06/14/13 Amlodipine Besylate [Norvasc 5 mg Tablet] 5 mg PO BID 04/07/18 Tamoxifen Citrate [Nolvadex 10 mg Tablet] 20 mg PO DAILY 04/07/18 Acetaminophen [Tylenol 325 mg Tablet] 650 mg PO Q6HP PRN tablet 04/13/18 Doxycycline Hyclate [Vibramycin 100 mg Tablet] 100 mg PO Q12 #30 tablet Hydralazine HCl [Apresoline 50 mg Tablet] 50 mg PO Q12 #60 tablet 04/13/18 Lisinopril [Prinivil 10 mg Tablet] 20 mg PO DAILY #30 tablet 04/13/18 Magnesium Hydroxide [Milk of Magnesia 30 ml Udcup] 30 ml PO HSP PRN udc Potassium Chloride [Klor-Con 10 Meq Tablet.sa] 10 meq PO Q12 #60 tablet.sa 04/13 History of Present Illness Admission Date/PCP: 04/06/18 22:36 ANJUM JUAREZ, History of Present Illness: JOSEPH NICOLE is a 82 year old female Hospital Course Hospital Course: The patient was admitted with altered mental status probably encephalopathy with a fever of unknown origin. Her cultures were all negative. Upon further questioning [place] she started acting up strangely and the possibility of [place] spotted fever has been undertaken. Blood cultures were sent. Lab results were sent. The patient was started on Rocephin and doxycycline and had significant improvement in her mentation. Her fever has resolved on the day of discharge she appeared comfortable in no acute distress her mental status has improved significantly Physical Exam Vital Signs: Temp Pulse Resp BP Pulse Ox 97.5 F 86 19 141/64 H 95 04/13/18 07:35 04/13/18 07:35 04/13/18 07:35 04/13/18 07:35 04/13/18 07:35 Intake & Output 04/12/18 04/13/18 04/14/18 06:59 06:59 06:59 Intake Total 1275 976 Balance 1275 976 Weight 70.9 kg 71 kg General appearance: PRESENT: no acute distress Head exam: PRESENT: normocephalic Eye exam: PRESENT: conjunctiva pink Neck exam: ABSENT: carotid bruit, JVD Respiratory exam: PRESENT: clear to auscultation willam Cardiovascular exam: PRESENT: RRR, +S1, +S2 Pulses: PRESENT: +1 pedal pulses bilateral GI/Abdominal exam: PRESENT: soft Extremities exam: PRESENT: tenderness Musculoskeletal exam: PRESENT: tenderness Neurological exam: PRESENT: alert, awake, oriented to person. ABSENT: oriented to time Results Laboratory Results: 04/11/18 05:17 04/11/18 05:17 04/06/18 04/07/18 04/07/18 22:40 04:11 04:11 Creatine Kinase 42 CK-MB (CK-2) 0.56 Troponin I 0.027 0.025 Impressions: Chest X-Ray 04/06/18 20:10 IMPRESSION: NO ACUTE RADIOGRAPHIC FINDING IN THE CHEST. Head CT 04/08/18 00:00 IMPRESSION: NO SIGNIFICANT INTERVAL CHANGE. EVIDENCE OF ACUTE STROKE: NO. Qualifiers - * PATIENT BEING DISCHARGED WITH ANY OF THE FOLLOWING DIAGNOSIS: No
[2018-04-13] MEDS: HYDROCHLOROTHIAZIDE 25 MG TABLET PO SCH (09:09)
[2018-04-13] MEDS: AMLODIPINE BESYLATE 5 MG TABLET PO SCH (09:09)
[2018-04-13] MEDS: LISINOPRIL 10 MG TABLET PO SCH (09:09)
[2018-04-13] MEDS: ASPIRIN 81 MG TABLET, ENT COATED PO SCH (09:09)
[2018-04-13] MEDS: HYDRALAZINE HCL 50 MG TABLET PO SCH (09:09)
[2018-04-13] MEDS: METOPROLOL TARTRATE 100 MG TABLET PO SCH (09:09)
[2018-04-13] MEDS: POTASSIUM CHLORIDE 10 MEQ TABLET.SA PO SCH (09:09)
[2018-04-13] MEDS: DOXYCYCLINE HYCLATE 100 MG TABLET PO SCH (09:10)
[2018-04-13] MEDS: TAMOXIFEN CITRATE 10 MG TABLET PO SCH (09:10)
[2018-04-13 12:16] VITALS: BP 131/64
== END 2018-04-13 13:22 | DRG 304 ==
LOC: ER 20:03 → EH 22:36 → 3W 04-07 01:16
PROVIDERS: ADMIT Internal Medicine; ATTEND Internal Medicine
DX: I16.0 Hypertensive urgency (principal); G93.40 Encephalopathy, unspecified; A77.0 Spotted fever due to Rickettsia rickettsii; R65.10 Systemic inflammatory response syndrome (SIRS) of non-infectious origin without acute organ dysfunction; R50.9 Fever, unspecified; F03.90 Unspecified dementia, unspecified severity, without behavioral disturbance, psychotic disturbance, mood disturbance, and anxiety; E11.9 Type 2 diabetes mellitus without complications; E78.5 Hyperlipidemia, unspecified; D72.829 Elevated white blood cell count, unspecified; Z79.899 Other long term (current) drug therapy; Z90.49 Acquired absence of other specified parts of digestive tract; Z90.710 Acquired absence of both cervix and uterus; Z90.13 Acquired absence of bilateral breasts and nipples
CPT/HCPCS: 36415; 70450; 71045; 80048; 80053; 80307; 81001; 82550; 82553; 82803; 83605; 83735; 84443; 84484; 85025; 86617; 86618; 86757; 87040; 87086; 96365; 99285; J0360; J0692; J0696; J1644; J2405; J3370; J3480; J3490; J7060; J7120

== ENCOUNTER → 2018-04-30 | Outpatient (CLI) | payer MEDICARE, OTHER ==
[2018-04-30 11:49] LABS: ABSOLUTE BASOPHILS # (AUTO) 0.1 10^3/uL (0.0-0.2); ABSOLUTE EOSINOPHILS # (AUTO) 0.2 10^3/uL (0.0-0.6); ABSOLUTE LYMPHOCYTES (AUTO) 3.5 10^3/uL (0.5-4.7); ABSOLUTE MONOCYTES (AUTO) 0.5 10^3/uL (0.1-1.4); ABSOLUTE NEUT (AUTO) 5.4 10^3/uL (1.7-8.2); BASOPHILS % (AUTO) 0.8 % (0-2); EOSINOPHILS % (AUTO) 2.5 % (0-6); HEMATOCRIT 38.9 % (36.0-47.0); HEMOGLOBIN 13.2 g/dL (12.0-15.5); LYMPHOCYTES % (AUTO) 36.2 % (13-45); MEAN CORPUSCULAR HEMOGLOBIN 30.9 pg (27.0-33.4); MEAN CORPUSCULAR HGB CONC 33.9 g/dL (32.0-36.0); MEAN CORPUSCULAR VOLUME 91 fl (80-97); MONOCYTES % (AUTO) 5.6 % (3-13); PLATELET COUNT 230 10^3/uL (150-450); RED BLOOD COUNT 4.27 10^6/uL (3.72-5.28); RED CELL DISTRIBUTION WIDTH 13.8 % (11.5-14.0); SEGMENTED NEUTROPHILS % (AUTO) 54.9 % (42-78); TOTAL CELLS COUNTED % (AUTO) 100 %; WHITE BLOOD COUNT 9.8 10^3/uL (4.0-10.5)
[2018-04-30 12:36] LABS: ALANINE AMINOTRANSFERASE 37 U/L (9-52); ALBUMIN 3.9 g/dL (3.5-5.0); ALKALINE PHOSPHATASE 34 U/L (38-126); ANION GAP 10 (5-19); ASPARTATE AMINO TRANSFERASE 22 U/L (14-36); BILIRUBIN,DIRECT 0.3 mg/dL (0.0-0.4); BLOOD UREA NITROGEN 19 mg/dL (7-20); CALCIUM 9.5 mg/dL (8.4-10.2); CARBON DIOXIDE 30 mmol/L (22-30); CHLORIDE 102 mmol/L (98-107); CHOLESTEROL 128.91 mg/dL (0-200); GLUCOSE 130 mg/dL (75-110); POTASSIUM 4.5 mmol/L (3.6-5.0); SODIUM 142.1 mmol/L (137-145); TOTAL PROTEIN 6.3 g/dL (6.3-8.2); TRIGLYCERIDES 170 mg/dL (<150)
[2018-04-30 12:47] LABS: DIRECT LDL 52 mg/dL (<100)
[2018-05-01 12:38] LABS: CREATININE URINE 98.9 mg/dL (Not Estab.); MICROALBUMIN URINE 4.3 ug/mL (Not Estab.)
== END ==
LOC: OD 10:22
PROVIDERS: ATTEND Internal Medicine
DX: E11.9 Type 2 diabetes mellitus without complications (principal); I10 Essential (primary) hypertension; E78.5 Hyperlipidemia, unspecified; I74.9 Embolism and thrombosis of unspecified artery; K21.9 Gastro-esophageal reflux disease without esophagitis; C50.919 Malignant neoplasm of unspecified site of unspecified female breast
CPT/HCPCS: 36415; 80053; 80061; 82043; 82570; 83036; 84443; 85025

== ENCOUNTER → 2019-01-28 | Outpatient (CLI) | payer MEDICARE, OTHER ==
[2019-01-28 09:32] LABS: ABSOLUTE BASOPHILS # (AUTO) 0.1 10^3/uL (0.0-0.2); ABSOLUTE EOSINOPHILS # (AUTO) 0.1 10^3/uL (0.0-0.6); ABSOLUTE LYMPHOCYTES (AUTO) 2.7 10^3/uL (0.5-4.7); ABSOLUTE MONOCYTES (AUTO) 0.5 10^3/uL (0.1-1.4); ABSOLUTE NEUT (AUTO) 3.5 10^3/uL (1.7-8.2); EOSINOPHILS % (AUTO) 0.9 % (0-6); HEMOGLOBIN 13.3 g/dL (12.0-15.5); LYMPHOCYTES % (AUTO) 39.7 % (13-45); MEAN CORPUSCULAR HGB CONC 34.1 g/dL (32.0-36.0); MEAN CORPUSCULAR VOLUME 91 fl (80-97); MONOCYTES % (AUTO) 6.6 % (3-13); PLATELET COUNT 231 10^3/uL (150-450); RED BLOOD COUNT 4.29 10^6/uL (3.72-5.28); RED CELL DISTRIBUTION WIDTH 13.9 % (11.5-14.0); SEGMENTED NEUTROPHILS % (AUTO) 51.8 % (42-78); TOTAL CELLS COUNTED % (AUTO) 100 %; WHITE BLOOD COUNT 6.8 10^3/uL (4.0-10.5)
[2019-01-28 10:11] LABS: ALANINE AMINOTRANSFERASE 41 U/L (9-52); ALBUMIN 3.8 g/dL (3.5-5.0); ALKALINE PHOSPHATASE 48 U/L (38-126); ANION GAP 6 (5-19); ASPARTATE AMINO TRANSFERASE 26 U/L (14-36); BILIRUBIN,DIRECT 0.3 mg/dL (0.0-0.4); BILIRUBIN,TOTAL 1.2 mg/dL (0.2-1.3); BLOOD UREA NITROGEN 11 mg/dL (7-20); CALCIUM 9.4 mg/dL (8.4-10.2); CARBON DIOXIDE 25 mmol/L (22-30); CHLORIDE 109 mmol/L (98-107); GLUCOSE 107 mg/dL (75-110); POTASSIUM 3.9 mmol/L (3.6-5.0); SODIUM 140.2 mmol/L (137-145); TOTAL PROTEIN 6.1 g/dL (6.3-8.2); TRIGLYCERIDES 119 mg/dL (<150)
[2019-01-28 10:28] LABS: DIRECT LDL 60 mg/dL (<100)
== END ==
LOC: OD 08:20
PROVIDERS: ATTEND Internal Medicine
DX: I12.9 Hypertensive chronic kidney disease with stage 1 through stage 4 chronic kidney disease, or unspecified chronic kidney disease (principal); N18.9 Chronic kidney disease, unspecified; E78.5 Hyperlipidemia, unspecified; E11.22 Type 2 diabetes mellitus with diabetic chronic kidney disease
CPT/HCPCS: 36415; 80053; 80061; 83036; 83735; 84443; 85025